=== PATIENT | male | born 1950 | race Caucasian/White ===

== ENCOUNTER 2020-04-26 10:00 | Inpatient (IN) ==
[2020-04-26 12:45] LABS: Basophils # 0.1 K/mcL (0.0-0.2); Basophils % 0.7 %; Eosinophils # 0.4 K/mcL (0.0-0.6); Eosinophils % 4.5 %; Hematocrit 43.3 % (37.5-50.1); Hemoglobin 14.4 g/dL (12.9-16.9); Immature Granulocytes % 0.4 % (0-4); Lymphocytes # 1.9 K/mcL (0.6-4.6); Lymphocytes % 20.3 %; Mean Corpuscular HGB Conc 33.3 g/dL (31.6-35.5); Mean Corpuscular Hemoglobin 32.5 pg (28.0-33.3); Mean Corpuscular Volume 97.7 fL (83.0-100.0); Mean Platelet Volume 9.2 fL (9.4-12.4); Monocytes # 0.7 K/mcL (0.0-1.3); Monocytes % 7.9 %; Neutrophils # 6.1 K/mcL (1.6-8.9); Platelet Count 243 K/mcL (140-400); Red Blood Count 4.43 M/mcL (4.19-5.50); Red Cell Distribution Width 12.4 % (11.5-14.5); Segmented Neutrophils % 66.2 %; White Blood Count 9.2 K/mcL (4.3-11.1)
[2020-04-26 12:53] LABS: INR 2.1
[2020-04-26 13:05] LABS: BUN/Creatinine Ratio 11 (6-26); Blood Urea Nitrogen 10 mg/dL (8-23); Calcium 8.9 mg/dL (8.6-10.3); Carbon Dioxide 26 mEq/L (23-29); Chloride 107 mEq/L (98-107); Glucose 102 mg/dL (70-105); Osmolality,Calculated 289 (280-300); Potassium 3.9 mEq/L (3.5-5.1); Sodium 140 mEq/L (136-145); eGFR For African Americans > 60 (> 60); eGFR For Non-African Americans > 60 (> 60)
[2020-04-26] MEDS ORDERED: Loratadine 10 MG TABLET PO PRN (13:11)
[2020-04-26] MEDS: amLODIPine 5 MG TABLET PO SCH ×2 (13:24→20:08)
[2020-04-26] MEDS: lisinopriL 20 MG TABLET PO SCH (20:08)
[2020-04-26] MEDS: Aspirin 81 MG TAB.CHEW PO SCH (20:17)
[2020-04-27] MEDS: *HR* Rivaroxaban 10 MG TABLET PO SCH (10:39)
[2020-04-27] MEDS: amLODIPine 5 MG TABLET PO SCH ×2 (10:39→19:56)
[2020-04-27] MEDS: lisinopriL 20 MG TABLET PO SCH ×2 (10:40→19:56)
[2020-04-27] MEDS: Aspirin 81 MG TAB.CHEW PO SCH (19:56)
[2020-04-28] MEDS: lisinopriL 20 MG TABLET PO SCH (07:54)
[2020-04-28] MEDS: amLODIPine 5 MG TABLET PO SCH (07:54)
[2020-04-28] MEDS: *HR* Rivaroxaban 10 MG TABLET PO SCH (07:54)
[2020-04-28 19:03] VITALS: BP 122/71
== END 2020-04-28 19:52 | disposition home or self-care (01) | DRG 310 ==
LOC: 3BNU
PROVIDERS: ADMIT Internal Medicine Clinical Cardiac Electrophysiology; ATTEND Internal Medicine Clinical Cardiac Electrophysiology